=== PATIENT | male | born 1945 | race Caucasian/White ===

== ENCOUNTER 2023-12-20 15:25 | Emergency (ER) | payer OTHER, SELFPAY ==
[2023-12-20 15:32] VITALS: BP 134/81; PULSE 76; RESP 15; TEMP 36.6; O2SAT 97
--- NOTE | 2023-12-20 16:59 | DI.RAD_ITS ---
Exam(s) XR KNEE LT 3V AP,LAT,MADDIE EXAM: XR KNEE LT 3V AP,LAT,MADDIE CLINICAL HISTORY: pain months, unstable. TECHNIQUE: 2D digital imaging was performed. COMPARISON: No exams were available for comparison FINDINGS: 3 views No evidence of acute fracture although there does appear to be a joint effusion. In addition there i s advanced degenerative narrowing of the medial compartment. Lateral compartment exhibits normal hei ght. Moderate degenerative changes are noted in the patellofemoral compartment. IMPRESSION: Degenerative changes as above. Joint effusion. No fractures evident. DATA REPOSITORY: RADIATION DOSE DELIVERED:
--- NOTE | 2023-12-20 17:00 | DI.RAD_ITS ---
Exam(s) XR HIP RT COMPLETE AP PELVIS EXAM: XR HIP RT COMPLETE AP PELVIS CLINICAL HISTORY: right hip pain. TECHNIQUE: 2D digital imaging was performed. COMPARISON: No exams were available for comparison FINDINGS: Two views No evidence of pelvic nor hip fracture. Mild degenerative changes in the right hip noted. IMPRESSION: No fractures evident. DATA REPOSITORY: RADIATION DOSE DELIVERED:
[2023-12-20] MEDS: Diclofenac 1% Gel 100 GM TUBE (18:37)
--- NOTE | 2023-12-21 17:02 | ED.GENADUL_ITS ---
Discharge Plan Disposition Patient Disposition: Home Condition: Stable Discharge Details Clinical Impression: Effusion of knee Primary Care Provider: Jovany Donaldson ED Provider: Maricel Kearns Home Meds and New Rx's Prescriptions: New diclofenac sodium 1 % gel 4.5 inch topical QID Qty: 100 0RF Rx Instructions: apply to single elbow, wrist or hand; for hand includes palm/fingers/back of hand Continued omeprazole [Prilosec] 1 tab PO QHS Discharge Instructions Instructions: Swollen Joints Additional Instructions: Take Tylenol 650 every 6 hours as needed for pain Apply diclofenac gel and use your brace Follow-up with orthopedics tomorrow to schedule an appointment if you do not hear from them I placed a referral use your walker with ambulation and return earlier should you have new or worsening complaints Referrals: Hermilo Breen MD [ [facility] STAFF PHYSICIAN] - Discharge Data Discharge Date/Time-TO BE ENTERED AT DEPARTURE: 12/20/23 18:52 HPI General Date/Time Provider Initiated Documentation: 12/20/23 15:47 . HPI Narrative: This 78-year-old gentleman presents with left knee pain for the past several years, worsening this week. Denies any fever chills or known trauma. States he feels similarly to when he had his right knee replaced. Denies any tick bites or any additional complaints at this time. Pain worsened with walking. Related Data Home Medications ?Medication ?Instructions ?Recorded ?Confirmed diclofenac sodium 1 % topical gel 4.5 inch topical QID #100 grams 12/20/23 omeprazole 1 tab PO QHS 12/20/23 12/20/23 Previous Rx's ?Medication ?Instructions ?Recorded diclofenac sodium 1 % topical gel 4.5 inch topical QID #100 grams 12/20/23 Allergies Allergy/AdvReac Type Severity Reaction Status Date / Time No Known Allergies Allergy Unverified 12/20/23 15:36 General Stated Complaint: Orthopedic DIEGO: 4 Exam Narrative Exam Narrative: Left knee with tenderness, palpable small effusion, no joint laxity, no erythema, no calf swelling or tenderness, distal pulses intact, no tenderness to ankle or hip on left side, neurovascularly intact alert and oriented, ambulatory with antalgic gait Course Vital Signs Vital signs: Vital Signs Temperature 36.6 C 12/20/23 15:32 Pulse 76 12/20/23 15:32 Respiratory Rate 15 12/20/23 15:32 Blood Pressure 134/81 12/20/23 15:32 Pulse Oximetry 97 12/20/23 15:32 Temperature 36.6 C 12/20/23 15:32 Pulse 76 12/20/23 15:32 Respiratory Rate 15 12/20/23 15:32 Respiratory Effort Normal 12/20/23 15:35 Blood Pressure 134/81 12/20/23 15:32 Blood Pressure Position Sitting 12/20/23 15:32 Pulse Oximetry 97 12/20/23 15:32 Oxygen Delivery Method Room Air 12/20/23 15:32 Oxygen Flow Rate 0 12/20/23 15:32 Pain Level 7 12/20/23 16:11 Medical Decision Making 78-year-old male in no acute distress, left knee with tenderness, chronic knee pain. X-ray was ordered which shows an effusion and degenerative changes. Patient was placed in a hinged knee brace and will use a walker. Diclofenac gel supplied. Orthopedic referral is patient will need assessment. Ambulatory with steady but antalgic gait at time of discharge home return precautions reviewed and patient expressed understanding, no evidence of secondary infection Quality:SDOH Health Related Social Needs: No Data to Display PFSH All Active Problems (Updated 12/20/23 @ 18:05 by FRANCISCO Ferraro) Effusion of knee (Acute) Social History Smoking risk assessment performed?: No PAWSS Have you Been Recently Intoxicated or Drunk Within the Last 30 days?: No Have you Ever Experienced Previous Episodes of Alcohol Withdrawal?: No Have you ever Experienced Withdrawal Seizures?: No Have you ever Experienced Delirium Tremens(DT)s?: No Have you ever undergone Alcohol Rehabilitation Treatment (i.e, inpt ot outpatient treatment programs)?: No Have you ever Experienced Blackouts?: No Have you ever Combined Alcohol with other Downers within the last 90 days?: No Have you ever Combined Alcohol with any other Substance of Abuse during the last 90 days?: No Positive Blood Alcohol level on Presentation? [PCS.BAL]: No Evidence of Increased Autonomic Activity (i.e. HR>120, tremor, sweating, agitation, nausea)?: No Result: 0
== END 2023-12-20 18:52 | disposition home or self-care (01) ==
PROVIDERS: Emergency Provider Physician Assistant; PCP Internal Medicine
DX: M25.562 Pain in left knee (principal); M25.462 Effusion, left knee; Z96.651 Presence of right artificial knee joint
CPT/HCPCS: 73562; 99283; 73502

== ENCOUNTER 2024-04-23 18:11 | Emergency (ER) | payer OTHER, SELFPAY ==
[2024-04-23] VITALS (16 sets, daily range): BP systolic 129–172; BP diastolic 53–86; PULSE 98–109; RESP 17–21; TEMP 36.7–36.9; O2SAT 95–98
--- NOTE | 2024-04-23 18:30 | DI.RAD_ITS ---
Exam(s) XR ELBOW RT COMPLETE EXAM: XR ELBOW RT COMPLETE CLINICAL HISTORY: injury post fall. TECHNIQUE: 2D digital imaging was performed of the left elbow. Three images were obtained. AP, lat eral and oblique views were obtained. COMPARISON: No exams were available for comparison FINDINGS: The lateral view is suboptimal secondary to patient positioning. BONES: No acute fracture is present. No bony destructive lesion is seen. There are well corticated os seous densities adjacent to the lateral epicondyle which are chronic. The radial head is poorly visu alized on this examination due to patient positioning. JOINTS: The elbow is normally aligned. No joint effusion is seen. Spurring is seen at the olecranon. SOFT TISSUE: Normal. IMPRESSION: 1. Exam is limited due to patient positioning. The radial head is not well visualized in all 3 plane s. If there is continued concern for radial head fracture, a follow-up examination or CT scan of the elbow is recommended. 2. Chronic changes seen around the elbow. DATA REPOSITORY: RADIATION DOSE DELIVERED:
--- NOTE | 2024-04-23 18:30 | DI.CT_ITS ---
Exam(s) CT CHEST/ABD/PEL W EXAM: CT CHEST/ABD/PEL W CLINICAL HISTORY: fall, flank injury, left hip injury TECHNIQUE: Imaging Protocol: Axial computed tomography images with coronal and sagittal reformatted images were created and reviewed. Lung Computer Aided Detection (CAD) was utilized. CONTRAST MATERIAL: Intravenous: Omnipaque 350 contrast volume:structured data in ml mL Oral: No COMPARISON: No exams were available for comparison FINDINGS: The examination is limited due to patient motion artifact. There is artifact in the abdomen due to position of the patient's upper extremities. CHEST: Tracheobronchial tree: Patent where visualized. No evidence of bronchiectasis. Pulmonary parenchyma: Moderate emphysematous changes are present. There is a 3 mm nodule in the infe rior aspect of the right upper lobe. There are no focal consolidating infiltrates. Mild atelectatic changes are seen in the dependent portions of the lungs. Visualized thyroid gland: There are few areas of hypodensity in the thyroid gland. There are less th an 4 mm. No follow-up is recommended. Mediastinum and Louann: No dominant adenopathy or fluid collection. The esophagus is unremarkable. Pleura: No effusion or pneumothorax. Heart: The heart is not dilated. Three vessel coronary artery calcification is present. No pericardi al effusion. Pulmonary arteries: Due to motion in the timing of the bolus evaluation of pulmonary artery embolism is limited. No large central pulmonary embolism is present. Aorta: Thoracic aorta non-dilated. No evidence of dissection. Atherosclerotic calcification is prese nt. Lymph nodes: Within normal limits. Soft tissues: Small amount of subcutaneous air in the soft tissues lateral to the acromioclavicular j oint. Bones:There are no displaced rib fractures. There are age-appropriate degenerative changes seen in t he shoulders bilaterally. No acute fractures or subluxations are seen in the thoracic or lumbar spin e. ABDOMEN: Liver: Normal density. No measurable mass. Portal, Superior Mesenteric, and Splenic Veins: Unremarkable. Gallbladder and Biliary Tract: No radiodense calculus or dilation. Pancreas: Normal density, no abnormal calcifications or inflammatory process. Spleen: Calcified granuloma are seen in the spleen. Adrenals: No masses seen. Kidneys: Normal size, contour and axis. No radiodense stones or obstructive uropathy. No masses seen. Abdominal Aorta: Abdominal portion non-dilated. Atherosclerotic calcification is present. Bowel: There is a large amount of stool in the rectum without wall thickening suggesting impaction. There is diverticulosis of the colon but no evidence of acute diverticulitis. There is no evidence o f bowel obstruction or bowel wall thickening. There is no evidence of appendicitis. Peritoneal Cavity: No ascites, collection or mesenteric inflammatory response. No free air. Lymph Nodes: Within normal limits. Bones: Within normal limits for the patient's age. Age-appropriate degenerative changes are seen in the lumbar spine. Soft Tissues: There are bilateral fat containing inguinal hernias and a moderate-sized fat containing umbilical hernia. There is mild enlargement of the left iliopsoas muscles. There is also mild infi ltration of the soft tissues. This may represent traumatic muscle injury. PELVIS: Bladder: There is mild diffuse thickening of the wall of the urinary bladder. There is mild infiltra tion of the surrounding tissues. No free fluid is seen in the pelvis. No air seen in the urinary bl adder. Reproductive Organs: Prostate gland appears mildly enlarged. Lymph Nodes: Within normal limits. Bones: Within normal limits. IMPRESSION: 1. No acute pulmonary process. 2. 3 mm right upper lobe pulmonary nodule. Solid nodules smaller than 6 mm do not require routine follow-up in all patients with high clinical r isk; however, some nodules smaller than 6 mm with suspicious morphology, upper lobe location, or both may warrant follow-up at 12 months (grade 2A; weak recommendation, high-quality evidence). (Ronald et al., 2017) Single solid noncalcified nodules. ???Solid nodules smaller than 6 mm (those 5 mm or smaller) do not require routine follow-up in patients at low risk (grade 1C; strong recommendation, low- or very-low- quality evidence). (Ronald et al., 2017) 3. No acute fracture is seen. 4. Mild enlargement of the left iliopsoas muscle with infiltration of the surrounding soft tissues. This may represent muscle injury. Please correlate clinically. 5. Mild diffuse thickening of the wall of the urinary bladder. This may be due to underdistention. Cystitis or chronic bladder outlet obstruction sequela cannot be excluded. 6. Small amount of subcutaneous air lateral to the acromioclavicular joint in the soft tissues. RADIATION DOSE DELIVERED: 538.17mGy.cm Total DLP DATA REPOSITORY: All CT scans at this facility are submitted to the National Radiology Data Registry (NRDR) Dose Index Registry (DIR) with the [employer] (A[employer]). RADIATION OPTIMIZATION: All CT scans at this facility use at least one of these dose optimization te chniques: automated exposure control; mA and/or kV adjustment per patient size (includes targeted exa ms where dose is matched to clinical indication); or iterative reconstruction.
--- NOTE | 2024-04-23 18:30 | DI.CT_ITS ---
Exam(s) CT HEAD CERVICAL SPINE WO EXAM: CT HEAD CERVICAL SPINE WO CLINICAL HISTORY: fall, [place]. TECHNIQUE: Imaging Protocol: Axial computed tomography images with coronal and sagittal reformatted images were created and reviewed COMPARISON: No exams were available for comparison FINDINGS: BRAIN: There are no skull fractures nor fluid in the visualized paranasal sinuses. There is no evidence of intracranial hemorrhage, mass effect, or shift of midline structures. There are no extra-axial fluid collections. The ventricles are not enlarged or shifted and there is no blo od within the ventricular system nor within the basal cisterns. There is moderate amount of bilatera l periventricular hypodensity consistent with chronic small vessel disease. Symmetrical atrophy is noted. CERVICAL SPINE: There is no evidence of acute fracture nor significant listhesis.. No significant prevertebral soft tissue swelling. There is this space narrowing at C5-6 level and small bilateral Luschka joint osteophytes at this lev el. There is also posterior bony ridging at C3-4 level and there is a prominent vertically orientate d exostoses coming off the posterior aspect of C4 vertebral body and extending superiorly for distanc e of 1.3 cm, it being 1.5 mm AP and 3 mm wide. This results in mild canal stenosis. However, there are no acute fractures identified. There is multilevel facet arthropathy. No facet joint fusion. There is no significant facet joint malalignment. No significant osseous lesions evident. IMPRESSION: No acute intracranial findings on this noninfused CT scan of the brain.Atrophy and chronic small-vess el white matter ischemic changes noted. No evidence of cervical spine fracture, malalignment, nor acute compromise of the cervical spinal can al. Degenerative changes as described above. RADIATION DOSE DELIVERED: 1,253.87mGy.cm Total DLP DATA REPOSITORY: All CT scans at this facility are submitted to the National Radiology Data Registry (NRDR) Dose Index Registry (DIR) with the [employer] (ACR). RADIATION OPTIMIZATION: All CT scans at this facility use at least one of these dose optimization te chniques: automated exposure control; mA and/or kV adjustment per patient size (includes targeted exa ms where dose is matched to clinical indication); or iterative reconstruction.
--- NOTE | 2024-04-23 18:30 | RT.EKG_ITS ---
APPROVED REPORT Exam: Resting ECG Reason for Exam: injury Patient Location: E HR:101 bpm ECG Measurements Heart Rate 101 AXIS [place] 151 P 56 QRSd 95 QRS -47 QT 360 T 83 QTc 468 Conclusion Sinus tachycardia...rate> 99 Left anterior fascicular block...axis(240,-40), init forces inf
--- NOTE | 2024-04-23 18:30 | DI.RAD_ITS ---
Exam(s) XR WRIST LT COMPLETE EXAM: XR WRIST LT COMPLETE CLINICAL HISTORY: injury post fall. TECHNIQUE: 2D digital imaging was performed of the left wrist. Three images were obtained. PA, obl ique and lateral views were obtained. COMPARISON: No exams were available for comparison FINDINGS: BONES: No acute fracture is present. No bony destructive lesion is seen. There is a tiny linear densi ty adjacent to the 1st metacarpophalangeal joint. It likely is chronic. The adjacent bone appears i ntact. JOINTS: The carpal bones are normally aligned. There are marked degenerative changes seen at the 1st carpometacarpal joint characterized by joint space narrowing and osteophytes. SOFT TISSUE: Normal. IMPRESSION: 1. No definite acute fracture or dislocation. 2. Tiny osseous density adjacent to the 1st MCP joint. This likely is chronic. Please correlate wit h the patient's site of pain. The adjacent bone appears unremarkable. DATA REPOSITORY: RADIATION DOSE DELIVERED:
[2024-04-23 19:11] LABS: Abs Immature Grans 0.03 10^3/uL (0.0-0.06); Absolute Basophil Count 0.03 10^3/uL (0.0-0.2); Absolute Eosinophil Count 0.05 10^3/uL (0.0-0.7); Absolute Lymphocyte Count 0.61 10^3/uL (1.2-3.4); Absolute Monocyte Count 0.44 10^3/uL (0.1-0.8); Absolute Neutrophil Count 8.13 10^3/uL (1.2-6.7); Basophils % 0.3 %; Eosinophils % 0.5 %; HCT 42.3 % (40.0-50.0); HGB 13.6 g/dL (13.5-17.5); Immature Grans % 0.3 %; Lymphocytes % 6.6 %; MCH 29.6 pg (27.0-33.0); MCHC 32.2 % (32.0-36.0); MCV 92 fL (80-95); Monocytes % 4.7 %; Neutrophils % 87.6 %; Platelet Count 288 10^3/uL (130-400); RDW 14.3 % (11.8-14.1); RDW-SD 48.3 fL; WBC 9.29 10^3/uL (4.4-10.8)
[2024-04-23 19:27] LABS: ALT 23 U/L (16-63); AST 18 U/L (15-37); Albumin 3.2 g/dL (3.4-5.0); Alkaline Phosphatase 122 U/L (46-116); Anion Gap 7.2 mmol/L (3-11); BUN 23 mg/dL (7-18); Bilirubin, Total 0.31 mg/dL (0.2-1.0); CO2 29.8 mmol/L (21.0-32.0); CREATININE 1.1 mg/dL (0.70-1.30); Calcium 9.2 mg/dL (8.5-10.1); Chloride 107 mmol/L (98-107); Creatine Kinase 78 U/L (39-308); Estimated GFR 68.29 (mL/min/1.73m2); Glucose 160 mg/dL (74-106); Lipase 28 U/L (<78); Magnesium 1.6 mg/dL (1.8-2.4); Potassium 3.8 mmol/L (3.5-5.1); Sodium 144 mmol/L (136-145); Total Protein 7.7 g/dL (6.4-8.2)
[2024-04-23 19:46] LABS: Bilirubin Negative (Negative); Blood Trace-intact (Negative); Clarity Clear (Clear); Glucose Negative (Negative); Ketones Negative (Negative); Leukocyte Esterase Negative (Negative); Nitrite Negative (Negative); Specific Gravity >= 1.030 (1.005-1.025); Urobilinogen 0.2 mg/dL (Up to 0.2); pH 5.5 (5-8)
[2024-04-23] MEDS: Diph,Pertuss(Acell),Tet Vac/Pf 0.5 ML SYR IM (19:47)
[2024-04-23 19:55] LABS: Bacteria Rare HPF (Negative); Crystals Negative HPF (Negative); Epithelial Cells Rare HPF (Negative); Mucus Trace (Negative); Other Cells Rare Transitional (Negative); WBC 0-2 HPF (0-5)
[2024-04-23 19:56] LABS: C & S Indicated? No; Casts Negative LPF (Negative)
[2024-04-23] MEDS: Omnipaque 350 MG/ML 100 ML BTL IJ (20:08)
[2024-04-23] MEDS: Normal Saline - Diluent 50 ML VIAL IJ (20:13)
--- NOTE | 2024-04-23 21:23 | DI.VRAD_ITS ---
PROCEDURE INFORMATION: Exam: CT Head Without Contrast Exam date and time: 04/23/2024 8:03 PM Age: 78 years old Clinical indication: Other: Fall, hi TECHNIQUE: Imaging protocol: Computed tomography of the head without contrast. COMPARISON: No relevant prior studies available. FINDINGS: Brain: No intracranial hemorrhage. There is global parenchymal volume loss. Periventricular white matter hypoattenuation is nonspecific but most likely due to small vessel disease. No evidence of acute territorial infarct or cerebral edema. No mass effect or midline shift. Cerebral ventricles: Prominent ventricles likely secondary to volume loss. Paranasal sinuses: Visualized sinuses are unremarkable. No fluid levels. Mastoid air cells: Nearly complete opacification of the mastoid air cells, bilaterally. Bones: Unremarkable. No acute fracture. Soft tissues: Punctate scalp calcifications. IMPRESSION: No acute intracranial findings. PROCEDURE INFORMATION: Exam: CT Cervical Spine Without Contrast Exam date and time: 04/23/2024 8:03 PM Age: 78 years old Clinical indication: Other: Fall, hi TECHNIQUE: Imaging protocol: Computed tomography of the cervical spine without contrast. COMPARISON: No relevant prior studies available. FINDINGS: Bones/joints: The cervical spine demonstrates moderate degenerative changes at multiple levels. Moderate disc space narrowing with anterior and posterior osteophyte formation more prominent C3/C4 and C5/C6 there is mild canal narrowing C3/C4 measuring to 7 mm. No fracture. Lungs: Lung apices are normal. Soft tissues: Unremarkable. IMPRESSION: No acute findings. Dictated and Authenticated by: Wendy Shaw MD. Orderin Urmila Connelly MD
--- NOTE | 2024-04-23 21:26 | DI.VRAD_ITS ---
PROCEDURE INFORMATION: Exam: XR Left Wrist Exam date and time: 04/23/2024 8:19 PM Age: 78 years old Clinical indication: Other: Injury post fall TECHNIQUE: Imaging protocol: Radiologic exam of the left wrist. Views: 3 or more views. COMPARISON: No relevant prior studies available. FINDINGS: Bones/joints: Tiny bone attenuating fragment near the 1st MCP joint, this may represent a ossicle this could also represent a fracture fragment, donor site unknown. Severe degenerative changes at the 1st ALF joint. Soft tissues: Diffuse soft tissue edema. IMPRESSION: 1. Tiny bone attenuating fragment near the 1st MCP joint, this may represent a ossicle this could also represent a fracture fragment, donor site unknown. 2. Severe degenerative changes at the 1st ALF joint. 3. Diffuse soft tissue edema. Dictated and Authenticated by: Wendy Shaw MD. Orderin Urmila Connelly MD
--- NOTE | 2024-04-23 21:28 | DI.VRAD_ITS ---
PROCEDURE INFORMATION: Exam: XR Right Elbow Exam date and time: 04/23/2024 8:22 PM Age: 78 years old Clinical indication: Other: Pain S/P fall TECHNIQUE: Imaging protocol: Radiologic exam of the right elbow. Views: 3 or more views. COMPARISON: No relevant prior studies available. FINDINGS: Bones/joints: Irregularity of the near the radial head, could represent a nondisplaced fracture. Soft tissues: Moderate elbow joint soft tissue edema mainly posteriorly, this could represent a effusion or hematoma. IMPRESSION: 1. Moderate elbow joint soft tissue edema mainly posteriorly, this could represent a effusion or hematoma. 2. Irregularity of the near the radial head, could represent a nondisplaced fracture. Dictated and Authenticated by: Wendy Shaw MD. Orderin Urmila Connelly MD
--- NOTE | 2024-04-23 21:29 | ED.GENADUL_ITS ---
Discharge Plan Disposition Patient Disposition: Home Discharge Details Clinical Impression: Hip injury, Injury of wrist, Bursitis of left elbow, Parkinson's disease, Unsteady gait, Hypomagnesemia Primary Care Provider: Jovany Donaldson ED Provider: Maricel Kearns Home Meds and New Rx's Prescriptions: New magnesium 250 mg tablet 250 mg PO DAILY Qty: 10 0RF Continued atenolol 50 mg tablet 50 mg PO DAILY carbidopa-levodopa 25-100 mg tablet 1 tab PO TID duloxetine 60 mg capsule,delayed release(DR/EC) 60 mg PO DAILY hydrochlorothiazide 25 mg tablet 25 mg PO DAILY omeprazole 20 mg capsule,delayed release(DR/EC) 20 mg PO .qod potassium chloride 10 mEq capsule, extended release 10 meq PO DAILY simvastatin 80 mg tablet 80 mg PO QHS losartan 25 mg tablet 25 mg PO DAILY tamsulosin 0.4 mg capsule 0.4 mg PO DAILY diclofenac sodium 1 % gel 4.5 inch topical QID Qty: 100 0RF Rx Instructions: apply to single elbow, wrist or hand; for hand includes palm/fingers/back of hand Discharge Instructions Instructions: Parkinson disease, Bursitis (DC), Preventing falls in adults, Common Wrist Injuries (DC), Low Magnesium Level Additional Instructions: Take the magnesium as prescribed, Tylenol as needed for pain Or having placed a hands glasses of water daily, follow-up with your doctor tomorrow, you received a tetanus shot here in the emergency department, and you have possible fracture to your left wrist and your right elbow, given that you are able to range her elbow I suspect this is more arthritis and less likely to be an acute fracture, please follow-up with your doctor regarding this I placed a left wrist splint for comfort, I think placing her right sling on your arm would be more of a risk than benefit You have requested to be discharged home, please use your walker with any sort of ambulation and call your doctor tomorrow for reassessment You are likely going to need much more support in the upcoming days secondary to your Parkinson's Earlier should you have desire for reassessment or any new concerns arise Referrals: Jvoany Donaldson [Primary Care Provider] - 1 day HPI General Date/Time Provider Initiated Documentation: 04/23/24 18:18 . HPI Narrative: The patient is a 78-year-old male with a history of Parkinson's, hypertension, GERD, and hyperlipidemia, who presents with a report of a fall today. He reports that he fell backward at some point today and was found lying on the floor when his caregiver arrived around 1730 hours. He estimates that he was on the floor for approximately an hour. He remembers the entirety of the fall and did not lose consciousness. He predominantly complains of pain in his left hip. He does not experience any chest pain or shortness of breath. He also does not experience any dizziness or weakness. He feels as though he lost his balance, causing him to fall backward. He does not have a history of coagulopathy. Related Data Home Medications ?Medication ?Instructions ?Recorded ?Confirmed diclofenac sodium 1 % topical gel 4.5 inch topical QID #100 grams 12/20/23 04/23/24 atenolol 50 mg tablet 50 mg PO DAILY 12/28/23 04/23/24 carbidopa 25 mg-levodopa 100 mg 1 tab PO TID 12/28/23 04/23/24 tablet duloxetine 60 mg capsule,delayed 60 mg PO DAILY 12/28/23 04/23/24 release hydrochlorothiazide 25 mg tablet 25 mg PO DAILY 12/28/23 04/23/24 losartan 25 mg tablet 25 mg PO DAILY 12/28/23 04/23/24 omeprazole 20 mg capsule,delayed 20 mg PO .qod 12/28/23 04/23/24 release potassium chloride 10 mEq 10 meq PO DAILY 12/28/23 04/23/24 capsule,extended release simvastatin 80 mg tablet 80 mg PO QHS 12/28/23 04/23/24 tamsulosin 0.4 mg capsule 0.4 mg PO DAILY 12/28/23 04/23/24 magnesium 250 mg tablet 250 mg PO DAILY #10 tabs 04/23/24 Previous Rx's ?Medication ?Instructions ?Recorded diclofenac sodium 1 % topical gel 4.5 inch topical QID #100 grams 12/20/23 magnesium 250 mg tablet 250 mg PO DAILY #10 tabs 04/23/24 Allergies Allergy/AdvReac Type Severity Reaction Status Date / Time No Known Allergies Allergy Unverified 04/23/24 18:18 General Stated Complaint: Fall/Non TraumaCriteria DIEGO: 3 Exam Narrative Exam Narrative: General Appearance: The patient is alert and oriented, not in acute distress. Vital signs: Within normal limits. HEENT: Pupils are equal, round, and reactive to light and accommodation. Extraocular muscles are intact. Respiratory: Lungs are clear to auscultation. Cardiovascular: Heart rate and rhythm are regular. Gastrointestinal: Abdomen is nontender with no visible evidence of trauma. Back, Musculoskeletal: No tenderness in the cervical, thoracic, or lumbar spine. Extremities: There is an abrasion on the left flank, which is nontender. There is an abrasion and acute bursitis on the right elbow, likely traumatic, with mild tenderness. The left wrist and hip are tender without visible evidence of deformity or trauma, neurovascularly intact. No tenderness in the bilateral knees or ankles. Skin: Warm and dry, no rash. Neurological: The patient is able to follow all basic commands, GCS score of 15. Course Vital Signs Vital signs: Vital Signs Temperature 36.7 C 04/23/24 18:15 Pulse 107 H 04/23/24 18:15 Respiratory Rate 18 04/23/24 18:15 Blood Pressure 172/86 H 04/23/24 18:15 Pulse Oximetry 95 04/23/24 18:15 Temperature 36.7 C 04/23/24 18:15 Temperature Source Oral 04/23/24 18:15 Pulse 104 H 04/23/24 20:30 Pulse 104 H 04/23/24 20:30 Respiratory Rate 18 04/23/24 20:30 Blood Pressure 133/66 04/23/24 20:00 Blood Pressure Mean 81 04/23/24 20:00 Blood Pressure Position Supine 04/23/24 18:15 Pulse Oximetry 97 04/23/24 20:30 Oxygen Delivery Method Room Air 04/23/24 18:15 Oxygen Flow Rate 0 04/23/24 18:15 Pain Level 6 04/23/24 18:40 Lab/Test Results Lab/Test Results: Laboratory Tests Range/Units 04/23/24 04/23/24 04/23/24 19:02 19:02 19:02 WBC (4.4-10.8) 10^3/uL 9.29 RBC (4.36-5.78) 10^6/uL 4.60 Hgb (13.5-17.5) g/dL 13.6 Hct (40.0-50.0) % 42.3 MCV (80-95) fL 92 MCH (27.0-33.0) pg 29.6 MCHC (32.0-36.0) % 32.2 RDW (11.8-14.1) % 14.3 H Plt Count (130-400) 10^3/uL 288 MPV (8.0-11.0) fL 9.0 Immature Gran % % 0.3 Neutrophils % % 87.6 Lymphocytes % % 6.6 Monocytes % % 4.7 Eosinophils % % 0.5 Basophils % % 0.3 Nucleated RBC % (0.0-0.3) % 0.0 Absolute Neutrophils (1.2-6.7) 10^3/uL 8.13 H Absolute Lymphocytes (1.2-3.4) 10^3/uL 0.61 L Absolute Monocytes (0.1-0.8) 10^3/uL 0.44 Absolute Eosinophils (0.0-0.7) 10^3/uL 0.05 Absolute Basophils (0.0-0.2) 10^3/uL 0.03 Sodium (136-145) mmol/L 144 Potassium (3.5-5.1) mmol/L 3.8 Chloride (98-107) mmol/L 107 Carbon Dioxide (21.0-32.0) mmol/L 29.8 Anion Gap (3-11) mmol/L 7.2 BUN (7-18) mg/dL 23 H Creatinine (0.70-1.30) mg/dL 1.1 Est GFR (CKD-EPI 2020) (mL/min/1.73m2) 68.29 Glucose (74-106) mg/dL 160 H Calcium (8.5-10.1) mg/dL 9.2 Magnesium (1.8-2.4) mg/dL 1.6 L Cancelled Total Bilirubin (0.2-1.0) mg/dL 0.31 AST (15-37) U/L 18 ALT (16-63) U/L 23 Alkaline Phosphatase (46-116) U/L 122 H Creatine Kinase (39-308) U/L 78 Cancelled Total Protein (6.4-8.2) g/dL 7.7 Albumin (3.4-5.0) g/dL 3.2 L Lipase (<78) U/L 28 Urine Color (Yellow) Urine Clarity (Clear) Urine pH (5-8) Ur Specific [place] (1.005-1.025) Urine Protein (Neg-Trace) mg/dL Urine Ketones (Negative) mg/dL Urine Blood (Negative) Urine Nitrite (Negative) Urine Bilirubin (Negative) Urine Urobilinogen (Up to 0.2) mg/dL Ur Leukocyte Esterase (Negative) Urine RBC (0-2) HPF Urine WBC (0-5) HPF Ur Epithelial Cells (Negative) HPF Urine Crystals (Negative) HPF Urine Bacteria (Negative) HPF Urine Casts (Negative) LPF Urine Mucus (Negative) Urine Other (Negative) Ur Culture Indicated? Urine Glucose (Negative) mg/dL Range/Units 04/23/24 04/23/24 19:02 19:37 WBC (4.4-10.8) 10^3/uL RBC (4.36-5.78) 10^6/uL Hgb (13.5-17.5) g/dL Hct (40.0-50.0) % MCV (80-95) fL MCH (27.0-33.0) pg MCHC (32.0-36.0) % RDW (11.8-14.1) % Plt Count (130-400) 10^3/uL MPV (8.0-11.0) fL Immature Gran % % Neutrophils % % Lymphocytes % % Monocytes % % Eosinophils % % Basophils % % Nucleated RBC % (0.0-0.3) % Absolute Neutrophils (1.2-6.7) 10^3/uL Absolute Lymphocytes (1.2-3.4) 10^3/uL Absolute Monocytes (0.1-0.8) 10^3/uL Absolute Eosinophils (0.0-0.7) 10^3/uL Absolute Basophils (0.0-0.2) 10^3/uL Sodium (136-145) mmol/L Potassium (3.5-5.1) mmol/L Chloride (98-107) mmol/L Carbon Dioxide (21.0-32.0) mmol/L Anion Gap (3-11) mmol/L BUN (7-18) mg/dL Creatinine (0.70-1.30) mg/dL Est GFR (CKD-EPI 2020) (mL/min/1.73m2) Glucose (74-106) mg/dL Calcium (8.5-10.1) mg/dL Magnesium (1.8-2.4) mg/dL Total Bilirubin (0.2-1.0) mg/dL AST (15-37) U/L ALT (16-63) U/L Alkaline Phosphatase (46-116) U/L Creatine Kinase (39-308) U/L Total Protein (6.4-8.2) g/dL Albumin (3.4-5.0) g/dL Lipase (<78) U/L Cancelled Urine Color (Yellow) Yellow Urine Clarity (Clear) Clear Urine pH (5-8) 5.5 Ur Specific [place] (1.005-1.025) >= 1.030 H Urine Protein (Neg-Trace) mg/dL 30 H Urine Ketones (Negative) mg/dL Negative Urine Blood (Negative) Trace-intact H Urine Nitrite (Negative) Negative Urine Bilirubin (Negative) Negative Urine Urobilinogen (Up to 0.2) mg/dL 0.2 Ur Leukocyte Esterase (Negative) Negative Urine RBC (0-2) HPF 3-5 H Urine WBC (0-5) HPF 0-2 Ur Epithelial Cells (Negative) HPF Rare Urine Crystals (Negative) HPF Negative Urine Bacteria (Negative) HPF Rare Urine Casts (Negative) LPF Negative Urine Mucus (Negative) Trace Urine Other (Negative) Rare Transitional Ur Culture Indicated? No Urine Glucose (Negative) mg/dL Negative Medical Decision Making Laboratory Studies CBC without acute abnormality. BUN baseline for patient. Mild hyperglycemia 160. Mag of 1.6. Urinalysis noninfectious with red blood cells. Imaging X-ray of right elbow shows possible fracture, although patient has significant arthritis and it's difficult to fully assess. CT head and cervical spine does not show evidence of acute abnormality per radiology interpretation on my review. CT chest, abdomen, and pelvis does not show acute abnormality per radiology interpretation on my review. Specifically no evidence of hip fracture. Initial Assessment: 78-year-old male with history of Parkinson's, hypertension, GERD, hyperlipidemia, presents with a fall. Complains of left hip pain, denies chest pain, shortness of breath, dizziness, or weakness. No history of coagulopathy. Physical exam shows alert and oriented, GCS 15, mild tenderness to left wrist and hip, abrasion and acute bursitis to right elbow, no abdominal or spine tenderness, lungs clear, cardiac rate and rhythm regular. Differential Diagnosis: - Right elbow fracture: X-ray suggests possible fracture, significant arthritis complicates assessment, no clinical evidence of open fracture, superficial abrasions suspected, low suspicion of fracture due to ability to range elbow, referral to orthopedics. - Left wrist injury: Possible injury noted, nontender over MTP area where radiology indicates potential fracture. - Hip fracture: CT chest, abdomen, and pelvis shows no evidence of hip fracture. ED Course: - CT chest, abdomen, and pelvis: No acute abnormality, no evidence of hip fracture. - CT head and cervical spine: No acute abnormality. - X-rays of elbow and wrist: Right elbow possible fracture, left wrist potential injury. - Diagnostic labs: CBC without acute abnormality, BUN baseline, mild hyperglycemia 160, Mag 1.6, supplemented, urinalysis noninfectious with red blood cells. - Ambulatory test: Marked difficulty with ambulation. Final Assessment: Comprehensive diagnostic approach undertaken due to age and comorbidities. No acute abnormalities found in CT scans. Right elbow possible f racture complicated by arthritis, low suspicion of fracture due to range of motion. Left wrist potential injury. Marked difficulty with ambulation noted. Clinical Impression: - Fall - Right elbow possible fracture - Left wrist potential injury - Mild hyperglycemia Disposition: - Discharge: Patient requests discharge home, caregiver comfortable with decision, aware of steady decline, attempting to arrange placement in assisted living facility. - Follow-Up: Daughter to contact [place] [facility] for follow-up assistance. [facility] Components Evaluation: - Number of Differential Diagnoses or Management Options: Right elbow fracture, left wrist injury, hip fracture. - Amount and Complexity of Data Reviewed: CT chest, abdomen, and pelvis, CT head and cervical spine, x-rays of elbow and wrist, diagnostic labs including CBC, BUN, urinalysis. - Risk of Complication and Morbidity or Mortality: Given age and comorbidities, comprehensive diagnostic approach necessary, potential complications from fall, marked difficulty with ambulation. Quality:SDOH Health Related Social Needs: No Data to Display PFSH All Active Problems (Updated 04/23/24 @ 22:19 by FRANCISCO Ferraro) Hypomagnesemia (Acute) Unsteady gait (Acute) Parkinson's disease (Chronic) Bursitis of left elbow (Acute) Injury of wrist (Acute) Hip injury (Acute) Trochanteric bursitis, right hip (Acute) Osteoarthritis of left knee (Acute) Social History Smoking risk assessment performed?: No
--- NOTE | 2024-04-23 21:33 | DI.VRAD_ITS ---
PROCEDURE INFORMATION: Exam: CT Chest With Contrast; Diagnostic Exam date and time: 04/23/2024 8:10 PM Age: 78 years old Clinical indication: Other: Fall, flank injury, left hip injury TECHNIQUE: Imaging protocol: Diagnostic computed tomography of the chest with contrast. Contrast material: 350; Contrast volume: 100 ml; Contrast route: INTRAVENOUS (IV); COMPARISON: CT HEAD CERVICAL SPINE WO 04/23/2024 8:03 PM FINDINGS: Thyroid: No thyroid lesions. No thyroid enlargement. Trachea: The central airways clear. Lungs: There is diffuse pulmonary emphysema. Linear bibasilar opacities most consistent with subsegmental atelectasis. Pleural spaces: Unremarkable. No pneumothorax. No pleural effusion. Heart: No cardiomegaly or pericardial effusion. Coronary arteries: Coronary arterial atherosclerotic calcifications are present. Lymph nodes: No axillary adenopathy. Vasculature: Moderate atherosclerotic calcifications of the thoracic aorta. Bones/joints: Moderate multilevel degenerative changes thoracic spine. Soft tissues: Left shoulder soft tissue edema with small foci of subcutaneous air IMPRESSION: No acute findings. PROCEDURE INFORMATION: Exam: CT Abdomen And Pelvis With Contrast Exam date and time: 04/23/2024 8:10 PM Age: 78 years old Clinical indication: Other: Fall, flank injury, left hip injury TECHNIQUE: Imaging protocol: Computed tomography of the abdomen and pelvis with contrast. Contrast material: 350; Contrast volume: 100 ml; Contrast route: INTRAVENOUS (IV); COMPARISON: CR XR HIP RT COMPLETE AP PELVIS 12/20/2023 4:50 PM FINDINGS: Lungs: Clear Liver: The liver is unremarkable. Gallbladder and biliary ducts: No gallstones. Nondistended. No wall thickening. Pancreas: The pancreas is unremarkable. Spleen: No splenomegaly. No lesions. Adrenal glands: The adrenal glands are unremarkable. Kidneys and ureters: The kidneys are normal. Stomach and bowel: Moderate stool throughout the colon and rectum. Colonic diverticulosis without evidence of diverticulitis. Appendix: No evidence of appendicitis. Intraperitoneal space: Unremarkable. No free air. No significant fluid collection. Vasculature: There is moderate diffuse atherosclerotic disease of the abdominal aorta. Lymph nodes: Unremarkable. No enlarged lymph nodes. Urinary bladder: There is diffuse bladder wall thickening, this may be secondary to incomplete distension, however, cystitis can have a similar appearance. Correlate clinically. Reproductive: Unremarkable as visualized. Bones/joints: No acute osseous abnormality. The lumbar spine demonstrates moderate degenerative changes at multiple levels. Soft tissues: Small fat containing umbilical hernia. Bilateral fat containing inguinal hernias. IMPRESSION: No acute findings. Dictated and Authenticated by: Wendy Shaw MD. Orderin Urmila Connelly MD
== END 2024-04-23 23:08 | disposition home or self-care (01) ==
PROVIDERS: Emergency Provider Physician Assistant; PCP Internal Medicine
DX: S79.812A Other specified injuries of left hip, initial encounter (principal); S69.82XA Other specified injuries of left wrist, hand and finger(s), initial encounter; M71.522 Other bursitis, not elsewhere classified, left elbow; E83.42 Hypomagnesemia; G20.A1 Parkinson's disease without dyskinesia, without mention of fluctuations; Z23 Encounter for immunization; W18.39XA Other fall on same level, initial encounter; Y93.01 Activity, walking, marching and hiking; Y92.89 Other specified places as the place of occurrence of the external cause
CPT/HCPCS: 74177; 80053; 82550; 83690; 90471; 90715; 93005; 99285; 70450; 71260; 72125; 73080; 73110; 81003; 81015; 83735; 85025; 93010; 99284; J3490

== ENCOUNTER 2024-06-12 09:52 | Emergency (ER) | payer OTHER, SELFPAY ==
[2024-06-12] VITALS (13 sets, daily range): BP systolic 142–160; BP diastolic 66–72; PULSE 75–88; RESP 13–19; TEMP 36.5–36.6; O2SAT 96–98
--- NOTE | 2024-06-12 09:45 | RT.EKG_ITS ---
APPROVED REPORT Exam: Resting ECG Reason for Exam: weakness Patient Location: E HR:89 bpm ECG Measurements Heart Rate 89 AXIS CA 146 P 44 QRSd 96 QRS -46 QT 381 T 78 QTc 465 Conclusion Sinus rhythm...normal P axis, V-rate 60- 99 Left anterior fascicular block...axis(240,-40), init forces inf No STEMI
--- NOTE | 2024-06-12 10:00 | DI.CT_ITS ---
Exam(s) CT HEAD WO EXAM: CT HEAD WO CLINICAL HISTORY: confusion yesterday, resolving. TECHNIQUE: Imaging Protocol: Axial computed tomography images with coronal and sagittal reformatted images were created and reviewed COMPARISON: CT CT HEAD CERVICAL SPINE WO from 04/23/2024 FINDINGS: Ventricles and Extra axial spaces: Normal in size and morphology for the patient's age. Hemorrhage: None. Cerebral parenchyma: No evidence of acute infarct or mass. Home [id number] atrophy. Mild to mo derate white matter changes of microvascular disease. Midline shift: None. Brainstem/Cerebellum: Normal. Calvarium: Normal. Visualized Paranasal sinuses:Clear. Mastoids: Clear. Soft Tissues: skin calcifications. ORBITS: Unremarkable. PITUITARY: Not enlarged. IMPRESSION: No acute intracranial process. RADIATION DOSE DELIVERED: 841.31mGy.cm Total DLP DATA REPOSITORY: All CT scans at this facility are submitted to the National Radiology Data Registry (NRDR) Dose Index Registry (DIR) with the [employer] ([employer]). RADIATION OPTIMIZATION: All CT scans at this facility use at least one of these dose optimization te chniques: automated exposure control; mA and/or kV adjustment per patient size (includes targeted exa ms where dose is matched to clinical indication); or iterative reconstruction.
--- NOTE | 2024-06-12 10:00 | DI.RAD_ITS ---
Exam(s) XR CHEST 2V PA LATERAL EXAM: XR CHEST 2V PA LATERAL CLINICAL HISTORY: confusion, SOB TECHNIQUE: 2D digital imaging was performed. Two views. COMPARISON: No exams were available for comparison FINDINGS: HEART: Normal size. Aorta: Not dilated. PULMONARY VASCULATURE: Normal. MEDIASTINUM: Unremarkable. LUNGS: Suboptimally inflated but clear. PLEURAL SPACE: No pleural effusion or pneumothorax. BONE:Unremarkable for age. SOFT TISSUES: Unremarkable. IMPRESSION: No acute abnormality. DATA REPOSITORY: RADIATION DOSE DELIVERED:
--- NOTE | 2024-06-12 10:08 | ED.GENADUL_ITS ---
Discharge Plan Disposition Patient Disposition: Home Condition: Good Discharge Details Clinical Impression: Altered mental status, Parkinson disease Primary Care Provider: Jovany Donaldson ED Provider: Hansa Fitzpatrick Home Meds and New Rx's Prescriptions: Continued atenolol 50 mg tablet 50 mg PO DAILY carbidopa-levodopa 25-100 mg tablet 1 tab PO TID duloxetine 60 mg capsule,delayed release(DR/EC) 60 mg PO DAILY hydrochlorothiazide 25 mg tablet 25 mg PO DAILY omeprazole 20 mg capsule,delayed release(DR/EC) 20 mg PO .qod potassium chloride 10 mEq capsule, extended release 10 meq PO DAILY simvastatin 80 mg tablet 80 mg PO QHS losartan 25 mg tablet 25 mg PO DAILY tamsulosin 0.4 mg capsule 0.4 mg PO DAILY diclofenac sodium 1 % gel 4.5 inch topical QID Qty: 100 0RF Rx Instructions: apply to single elbow, wrist or hand; for hand includes palm/fingers/back of hand magnesium 250 mg tablet 250 mg PO DAILY Qty: 10 0RF Discharge Instructions Instructions: Delirium (confusion) Additional Instructions: Labs and imaging are reassuring here today. The story and exam is not consistent with stroke. I am more concerned about aspiration or progression Parkinsons but encourage close follow up with primary care. I have called their office, waiting for call back. Please continue with your medications as prescribed. Referral has been sent to palliative care. Please continue to encourage hydration. Care management is looking into other possible supports. If you develop any new/worsening symptoms, please seek care urgently once again. Referral for home PT has been sent as well. Referrals: Jovany Donaldson [Primary Care Provider] - Discharge Data Discharge Date/Time-TO BE ENTERED AT DEPARTURE: 06/12/24 13:05 [facility] General Date/Time Provider Initiated Documentation: 06/12/24 09:55 . Limitations to Documentation: no limitations . Information obtained by: patient, family (home care provider and daughter), RN notes reviewed and old records reviewed . History of Present Illness 79 year old M presents to the emergency department with the chief complaint of episode of confusion yesterday, lasted a few seconds, described as moderate and similar to prior episodes (had one other episode about a month ago), Patient started experiencing this day(s) and it has been now resolved (lasted a few seconds). No relieving factors improve symptom(s), No exacerbating factors reported . Patient notes no other symptoms.. Patient did receive the following treatments prior to arrival, none Related Data Home Medications ?Medication ?Instructions ?Recorded ?Confirmed diclofenac sodium 1 % topical gel 4.5 inch topical QID #100 grams 12/20/23 06/12/24 atenolol 50 mg tablet 50 mg PO DAILY 12/28/23 06/12/24 carbidopa 25 mg-levodopa 100 mg 1 tab PO TID 12/28/23 06/12/24 tablet duloxetine 60 mg capsule,delayed 60 mg PO DAILY 12/28/23 06/12/24 release hydrochlorothiazide 25 mg tablet 25 mg PO DAILY 12/28/23 06/12/24 losartan 25 mg tablet 25 mg PO DAILY 12/28/23 06/12/24 omeprazole 20 mg capsule,delayed 20 mg PO .qod 12/28/23 06/12/24 release potassium chloride 10 mEq 10 meq PO DAILY 12/28/23 06/12/24 capsule,extended release simvastatin 80 mg tablet 80 mg PO QHS 12/28/23 06/12/24 tamsulosin 0.4 mg capsule 0.4 mg PO DAILY 12/28/23 06/12/24 magnesium 250 mg tablet 250 mg PO DAILY #10 tabs 04/23/24 06/12/24 Previous Rx's ?Medication ?Instructions ?Recorded diclofenac sodium 1 % topical gel 4.5 inch topical QID #100 grams 12/20/23 magnesium 250 mg tablet 250 mg PO DAILY #10 tabs 04/23/24 Allergies Allergy/AdvReac Type Severity Reaction Status Date / Time No Known Allergies Allergy Unverified 06/12/24 10:09 General Stated Complaint: GenMedical DIEGO: 3 Review of Systems Constitutional Constitutional: Reports as per HPI, Denies chills, Denies fever(s), Reports frequent falls, Denies headache(s), Denies poor appetite (no recent change) and Reports weakness (associates with Parkinsons, chronic BUE and BLE, no acute change) Eyes Eyes: Denies change in vision and Denies loss of vision ENT Ears, Nose, Mouth, and Throat: Reports dysphagia (chronic, associates with previ ous surgery, can have aspiration), Denies vertigo, Denies headache(s), Denies odynophagia and Reports disequilibrium Cardiovascular Cardiovascular: Reports as per HPI, Denies chest pain and Denies dyspnea Respiratory Respiratory: Reports as per HPI, Denies cough and Denies dyspnea Gastrointestinal Gastrointestinal: Reports as per HPI, Denies abdominal pain, Denies change in bowel habits, Denies constipation (stool can be sticky per home care provi tyler), Reports dysphagia (chronic, associates with previous surgery, can have aspiration), Denies odynophagia and Denies vomiting Genitourinary Genitourinary: Reports as per HPI, Denies urinary frequency and Reports urinary incontinence (associates with Parkinsons) Neurologic Neurologic: Denies vertigo, Reports frequent falls, Denies headache(s), Reports lack of coordination, Denies localized weakness, Denies loss of vision, Reports tremor(s), Reports disequilibrium and Reports weakness (associates with Parkinsons, chronic BUE and BLE, no acute change) Exam Const General: cooperative, comfortable, no acute distress and ill appearing chronically Nutritional Appearance: average body habitus and well nourished Orientation: alert and awake [facility] Head: normal to inspection, normocephalic and atraumatic Ears: hearing grossly normal bilaterally General nose exam: external nose normal Face and sinus: normal facial exam, no lacerations and no sinus tenderness Mouth: oral mucosae normal, lip normal and tongue normal Teeth and gingiva: dentition normal Throat: posterior oropharynx normal Eyes General: appearance normal, both eyes and all related structures Chest Chest: normal inspection of the chest Resp Effort & Inspection: normal respiratory effort, able to speak in complete sentences and no respiratory distress Auscultation: clear to auscultation bilaterally Cardio Rate: regular rate Rhythm: regular rhythm Heart Sounds: murmur diastolic Skin General skin exam: no rashes or lesions noted Neuro General: patient alert, patient awake, patient oriented x3, gait abnormal, tone normal, moves all extremities and no focal motor deficits Cranial Nerves: CN's II-XI intact bilaterally Cognition: normal cognition Speech: speech normal Gait: shuffling (needs 2 assist) Motor: muscle tone normal throughout, strength not 5/5 throughout (generally weak but no focal findings 4/5), no pronator drift and tremor (left hand) Sensory Exam: no sensory deficits noted Extrem General: normal to inspection, capillary refill normal, no pedal edema and no calf tenderness Psych Appearance: grossly normal and well kempt Mental Status: mental status grossly normal Speech and Movement: speech and movement normal Course Vital Signs Vital signs: Vital Signs Temperature 36.5 C 06/12/24 09:55 Pulse 88 06/12/24 09:55 Respiratory Rate 18 06/12/24 09:55 Blood Pressure 160/66 H 06/12/24 09:55 Temperature 36.5 C 06/12/24 09:55 Temperature Source Oral 06/12/24 09:55 Pulse 88 06/12/24 09:55 Respiratory Rate 18 06/12/24 09:55 Blood Pressure 160/66 H 06/12/24 09:55 Pain Level 0 06/12/24 09:55 Medical Decision Making The patient is a pleasant 79-year-old male, brought in by his caregiver, chief complaint of episode of confusion yesterday that lasted a few seconds and subsequently resolved. Patient has had similar episode about 1 month ago. He does have a past medical history significant for Parkinson's, patient is now nonmobile and in a wheelchair. PMH also significant for hx of throat cancer with partial esophagectomy, hx of enlarged prostate, hx of bladder cancer s/p resection, elevated BP, high cholesterol. employment director states he has been at his baseline today, no further episodes. Patient state that he is feeling well, no pain. On exam, patient appears chronically unwell, weak and needs 2 assist to get into bed. this is reported to be baseline. He is alert and oriented x 4. He has tremor in left hand. Generalized weakness but no focal deficits of CN or elsewhere. No evidence of trauma. Lungs are clear. Mild diastolic murmur auscultated which was reported to be previously noted per daughter. employment director primarily concerned for CVA. However, the episode described of sidden onset of breath holding, not speaking, while eating that only lasted a few seconds with full return, does not sound like CVA. Particularly given patients hx of frequent choking with the partial esophagectomy, as well as progressive Parkinsons, this sounds to be more consistent with event. At this time, no acute deficits. employment director feels that movements are baseline, as does patient. He has no evidence of recent trauma. No sxs of infection. Even if patient did show signs of CVA, they are out window for lytics, do not qualify. I also spoke with patient and daughter about anticoagulation, I am concerned with his frequency of falls, to put him on anticoagulation. Spoke with daughter, Gerri, resides in [place] but is DPOA. Patient would like me to call her and give her update. She reports that last MRI was in 2022, she reports that this was for the dx of Parkinsons. She reports that sometime he has difficulty speaking so she is the decision maker sometimes. She states that he is a DNR. She advises that he is suffering and does not want to have aggressive interventions. [facility] She is trying to get him transferred to [place]. She does not want him to get [facility] care here. CT reivewed by radiologist, no acute abnormality. They do not mild to moderate atrophy, microvascular disease. CXR also reviewed by them, no acute abnormality. Labs reviewed, no acute abnormality. Will touch base with patient's PCP and daughter again. discussed with patient and he is requesting d/c to home. He continues to report he feels fine. employment director has ask a few times about an MRI. However, the full transient, bilateral nature of his symptoms, that only lasted a few seconds, does not sound consistent with CVA. More concerned with choking. He has also had similar episodes and issues with his Parkinsons in nikole past. This could be associated with progression of disease. While family is wanting to get him into intermediate designer care, patient does not want this. Currently, he appears to have capacity although it sounds like he has been progressing. [facility] Care management is looking into other options. Care management recommended home PT which I agree with. Have placed referral. Referral for palliative care placed as well. Discussed disposition at length. At this point, patient does not want to go to jail or assisted living home. He does have a good amount of support although no 24 hr care. Family is supportive. Encouraged close f/u with PCP. [facility] not [facility] the [facility] as of yet. No evidence at this time for acute medical emergency. All of their questions and concerns were addressed, they are in agreement with this plan. Quality:SDOH Health Related Social Needs: No Data to Display PFSH All Active Problems (Updated 06/12/24 @ 12:47 by FRANCISCO Lora) Parkinson disease (Chronic) Altered mental status (Acute) Trochanteric bursitis, right hip (Acute) Osteoarthritis of left knee (Acute) Social History Smoking/Tobacco Use Status: Former Tobacco Use Smoking risk assessment performed?: Yes Alcohol Intake: never Substance use type: does not use
[2024-06-12 10:22] LABS: Abs Immature Grans 0.02 10^3/uL (0.0-0.06); Absolute Basophil Count 0.05 10^3/uL (0.0-0.2); Absolute Lymphocyte Count 0.89 10^3/uL (1.2-3.4); Absolute Monocyte Count 0.34 10^3/uL (0.1-0.8); Basophils % 0.7 %; Eosinophils % 1.4 %; HCT 42.5 % (40.0-50.0); HGB 13.6 g/dL (13.5-17.5); Immature Grans % 0.3 %; Lymphocytes % 12.5 %; MCV 94 fL (80-95); MPV 8.9 fL (8.0-11.0); Monocytes % 4.8 %; Neutrophils % 80.3 %; Platelet Count 237 10^3/uL (130-400); RBC 4.54 10^6/uL (4.36-5.78); RDW 14.8 % (11.8-14.1); RDW-SD 51.1 fL
[2024-06-12 11:14] LABS: ALT 10 U/L (16-63); AST 17 U/L (15-37); Albumin 3.4 g/dL (3.4-5.0); Alkaline Phosphatase 123 U/L (46-116); Anion Gap 4.7 mmol/L (3-11); BUN 16 mg/dL (7-18); Bilirubin, Total 0.4 mg/dL (0.2-1.0); CO2 32.3 mmol/L (21.0-32.0); CREATININE 1.1 mg/dL (0.70-1.30); Calcium 9.6 mg/dL (8.5-10.1); Chloride 105 mmol/L (98-107); Estimated GFR 67.86 (mL/min/1.73m2); Glucose 144 mg/dL (74-106); Magnesium 1.8 mg/dL; Potassium 4.3 mmol/L (3.5-5.1); Sodium 142 mmol/L (136-145); Total Protein 8.1 g/dL (6.4-8.2); Troponin I 24 ng/L (<or=76)
[2024-06-12 11:15] LABS: Bilirubin Negative (Negative); Blood Negative (Negative); Clarity Clear (Clear); Glucose Negative (Negative); Ketones Negative (Negative); Leukocyte Esterase Negative (Negative); Nitrite Negative (Negative); Urobilinogen 0.2 mg/dL (Up to 0.2); pH 5.5 (5-8)
--- NOTE | 2024-06-12 15:01 | PDOC.CMPRO ---
Date of service: 06/12/24 Time of Service: 15:02 Care Management Progress Note Progress Note Text Progress Note Text: CM was consulted to meet with Won Cantu to discuss his support at home. Per report, Pepe has a diagnosis is parkinsons disease; he is connected to the [facility], which is where he receives primary care. Pepe was lying in bed in the ED when CM met with him. His caregiver, Gene, was in the room visiting. Pepe stated that he does pretty well at home, and has caregivers, arranged through the [facility]. He stated that he has a [facility] casework [facility], but was not sure of her name. He reported that he has caregiver support from 7a-11a wednesday-wednesday, 12:30-5p MWF, and 2:30-5:30 , TH. He also stated he has support on the weekends. He stated that he ambulates with a FWW and a wheelchair. He stated that when he does not have caregiver support, he sits in his chair and watches TV. Per report, his daughter lives in [place], and would like him to relocate to be closer to her, but that he would need to transition to fdc care in [place]. LARRY discussed this with Pepe, who stated that he would be ok with relocating, but does not want to live in a facility. He prefers to remain home. He stated that he has not considered a terminal block assembler plan, if his care needs exceed the home care that he currently receives. LARRY contacted the [facility] and spoke to his correctional casework specialist, Idalia, who works out of the [facility]. She stated that he has caregivers through the [facility] (20 hrs), and also has support and some caregivers through the [facility]. She identified Yari as his [facility] correctional casework specialist. Idalia stated that Pepe is not service connected, despite claims of his exposure to agent orange, as this has not been validated. She stated that he needs to go through a new process to determine his level of service connection, which he has not engaged in during [facility] to [facility]. She stated that he can be set in his ways. CM sent a referral to palliative care to discuss his goals of care. ED provider put in a referral for new PT for a home safety evaluation. CM will continue to follow. Social Determinants of Health Screening Will the Patient Participate in the Screening?: Declined to provide
== END 2024-06-12 13:05 | disposition home or self-care (01) ==
PROVIDERS: Emergency Provider Physician Assistant; PCP Internal Medicine
DX: R41.82 Altered mental status, unspecified (principal); G20.A1 Parkinson's disease without dyskinesia, without mention of fluctuations; I44.4 Left anterior fascicular block; Z85.51 Personal history of malignant neoplasm of bladder; Z85.01 Personal history of malignant neoplasm of esophagus; Z87.891 Personal history of nicotine dependence
CPT/HCPCS: 36415; 80053; 82962; 93005; 99285; 70450; 71046; 81003; 83735; 84484; 85025; 93010; 99284

== ENCOUNTER 2024-06-22 08:28 | Emergency (ER) | payer OTHER, SELFPAY ==
[2024-06-22] VITALS (30 sets, daily range): BP systolic 118–177; BP diastolic 65–95; PULSE 87–112; RESP 15–29; TEMP 35.7; O2SAT 92–97
--- NOTE | 2024-06-22 08:58 | DI.CT_ITS ---
Exam(s) CT CHEST/ABD/PEL WO EXAM: CT CHEST/ABD/PEL WO CLINICAL HISTORY: right flank and thorax pain. TECHNIQUE: Imaging Protocol: Axial computed tomography images with coronal and sagittal reformatted images were created and reviewed CONTRAST MATERIAL: Intravenous: none Oral: None COMPARISON: CT CT CHEST/ABD/PEL W from 04/23/2024 FINDINGS: CHEST: LUNGS: There are mild increased markings in the posterior basal segments of both lower lobes, more so than previous, not associated with significant pleural effusions. There are no ominous pulmonary no dules. Scattered tiny calcified granulomas are noted in both lung eckert, best evident on the MIP im ages. MEDIASTINUM: No obvious hilar nor mediastinal adenopathy. Visualized thyroid unremarkable.Visualized thyroid appears unremarkable. CARDIAC: Heart size is normal. There is no pericardial effusion.Caliber of the thoracic aorta is wit hin normal limits. OSSEOUS: Significant degenerative changes noted in the right shoulder glenohumeral joint. No fractur es.. ABDOMEN: There is no ascites. No evidence of bowel obstruction, free air, nor abscess. There is a left ingui nal hernia again noted which contains part of a small part of the sigmoid including a sigmoid diverti culum. No obvious diverticulitis at this level and no transition point to suggest obstruction of the colon at this level. LIVER: There are no obvious focal hepatic lesions evident of this noninfused study. GALLBLADDER/BILIARY: No obvious gallbladder pathology. CBD is not dilated. PANCREAS: No evidence of obvious pancreatic mass nor dilatation of the pancreatic duct. SPLEEN: Spleen is not enlarged. No obvious intrasplenic lesions. Calcified granuloma are noted in t he spleen. ADRENALS: There are no significant adrenal masses. KIDNEYS: No calculi nor hydronephrosis. No obvious solid renal masses. No cysts evident. ABDOMINAL AORTA: Abdominal aorta is calcified but not enlarged. Iliac arteries are also calcified bu t not enlarged. LYMPH NODES: There is no retroperitoneal nor para-aortic adenopathy. ABDOMINAL WALL/GI: There is a fat only containing midline umbilical hernia. Bilateral fat containing inguinal hernias again noted. On the left side contains part of the sigmoid as described above. No evidence of bowel obstruction. PELVIS: LYMPH NODES: There is no intrapelvic nor inguinal adenopathy. GI: No evidence of appendicitis.There is a sigmoid diverticulosis. No obvious acute diverticulitis. URINARY BLADDER: No calculi nor obvious masses evident REPRODUCTIVE: Enlarged prostate gland which indents the urinary bladder. OSSEOUS: No fractures. No significant osseous lesions. IMPRESSION: 1. There are bilateral fat containing inguinal hernias. However on the left side part of the wall of the sigmoid is pulled into the upper left inguinal hernia sac, including 1 of the diverticuli at thi s level. There is no evidence of acute diverticulitis and there is no evidence of transition point-b owel obstruction at this level. 2. Extensive sigmoid diverticulosis without evidence of obvious acute diverticulitis. 3. Slightly increased markings in both lung bases posterior basal segments both lower lobes, this sj ng slightly more than was evident on 04/23/2024. There are no significant pleural effusions. Called by myself to ER provider 06/22/2024 at 10:40 a.m. RADIATION DOSE DELIVERED: 784.49mGy.cm Total DLP DATA REPOSITORY: All CT scans at this facility are submitted to the National Radiology Data Registry (NRDR) Dose Index Registry (DIR) with the [employer] (A[employer]). RADIATION OPTIMIZATION: All CT scans at this facility use at least one of these dose optimization te chniques: automated exposure control; mA and/or kV adjustment per patient size (includes targeted exa ms where dose is matched to clinical indication); or iterative reconstruction.
[2024-06-22 09:19] LABS: Abs Immature Grans 0.03 10^3/uL (0.0-0.06); Absolute Basophil Count 0.05 10^3/uL (0.0-0.2); Absolute Eosinophil Count 0.08 10^3/uL (0.0-0.7); Absolute Monocyte Count 0.44 10^3/uL (0.1-0.8); Absolute Neutrophil Count 8.08 10^3/uL (1.2-6.7); Basophils % 0.5 %; Eosinophils % 0.8 %; HGB 13.8 g/dL (13.5-17.5); Immature Grans % 0.3 %; Lymphocytes % 8.4 %; MCH 29.9 pg (27.0-33.0); MCHC 32.1 % (32.0-36.0); MCV 93 fL (80-95); MPV 8.7 fL (8.0-11.0); Monocytes % 4.6 %; Neutrophils % 85.4 %; Platelet Count 236 10^3/uL (130-400); RBC 4.61 10^6/uL (4.36-5.78); RDW 14.6 % (11.8-14.1); RDW-SD 49.7 fL; WBC 9.48 10^3/uL (4.4-10.8)
[2024-06-22 09:33] LABS: ALT 9 U/L (16-63); AST 28 U/L (15-37); Albumin 3.4 g/dL (3.4-5.0); Alkaline Phosphatase 114 U/L (46-116); Anion Gap 6.4 mmol/L (3-11); BUN 20 mg/dL (7-18); Bilirubin, Total 0.6 mg/dL (0.2-1.0); CO2 30.6 mmol/L (21.0-32.0); CREATININE 1.1 mg/dL (0.70-1.30); Calcium 9.6 mg/dL (8.5-10.1); Chloride 104 mmol/L (98-107); Estimated GFR 67.86 (mL/min/1.73m2); Glucose 114 mg/dL (74-106); Lipase 24 U/L (<78); Potassium 4.6 mmol/L (3.5-5.1); Sodium 141 mmol/L (136-145); Total Protein 8.3 g/dL (6.4-8.2)
[2024-06-22 09:49] LABS: Bilirubin Negative (Negative); Blood Negative (Negative); Clarity Clear (Clear); Glucose Negative (Negative); Ketones Negative (Negative); Leukocyte Esterase Negative (Negative); Nitrite Negative (Negative); Urobilinogen 0.2 mg/dL (Up to 0.2)
[2024-06-22 09:57] LABS: Bacteria Negative HPF (Negative); C & S Indicated? No; Casts 0-2 Hyaline LPF (Negative); Crystals Negative HPF (Negative); Epithelial Cells Rare HPF (Negative); Mucus Negative (Negative); RBC Negative HPF (0-2); WBC 0-2 HPF (0-5)
[2024-06-22] MEDS: Lidocaine 5% Patch 2 PATCH TP (11:20)
[2024-06-22] MEDS: Acetaminophen 325 MG TAB (11:20)
--- NOTE | 2024-06-22 13:00 | W.ED.GENAD ---
Discharge Plan Disposition Patient Disposition: Home Condition: Stable Discharge Details Clinical Impression: Back pain Primary Care Provider: Jovany Donaldson ED Provider: Maricel Kearns Home Meds and New Rx's Prescriptions: New cyclobenzaprine 5 mg tablet 5 mg PO HS Qty: 8 0RF lidocaine [Lidoderm] 5 % adhesive patch,medicated 1 patch topical DAILY Qty: 15 0RF Rx Instructions: leave on most painful area for up to 12 hrs baclofen 10 mg tablet 5 mg PO QHS Qty: 7 0RF Continued carbidopa-levodopa 25-100 mg tablet 1 tab PO TID duloxetine 60 mg capsule,delayed release(DR/EC) 60 mg PO DAILY omeprazole 20 mg capsule,delayed release(DR/EC) 20 mg PO .qod potassium chloride 10 mEq capsule, extended release 10 meq PO DAILY Patient Comments: ran out of rx simvastatin 80 mg tablet 80 mg PO QHS tamsulosin 0.4 mg capsule 0.4 mg PO DAILY magnesium 250 mg tablet 250 mg PO DAILY Qty: 10 0RF psyllium seed (sugar) Powder 1 tsp PO DAILY Patient Comments: [facility] with [facility] sodium 1 % gel 4.5 inch topical QID PRN Rx Instructions: apply to single elbow, wrist or hand; for hand includes palm/fingers/back of hand Discharge Instructions Instructions: Low Back Pain ED Additional Instructions: You have inguinal hernias that you may follow-up with their doctor regarding The remainder of your CT does not show evidence of significant acute abnormality, you may apply topical Lidoderm patches as needed for discomfort, if your insurance does not cover these you may buy [id number] Lidoderm patches which will work quite nicely 12 hours on 12 hours off Use walker with ambulation repeat assessment in 3 days with persistent discomfort Suspect your pain is related to musculoskeletal etiology and taking Tylenol every 4 hours so as not to exceed 3 g of Tylenol daily to help with her pain Discharge Data Discharge Date/Time-TO BE ENTERED AT DEPARTURE: 06/22/24 11:57 HPI General Date/Time Provider Initiated Documentation: 06/22/24 08:32. HPI Narrative: The patient, with Parkinson's disease and hyperlipidemia, reports right flank pain starting 1 day prior. Pain began upon rising from a chair and persists, worsened by coughing, laughing, or movement. No hematuria, dysuria, fever, chills, or similar episodes. Chronic cough without recent changes, no dyspnea, hemoptysis, or calf pain/swelling. Related Data Home Medications ?Medication ?Instructions ?Recorded ?Confirmed carbidopa 25 mg-levodopa 100 mg 1 tab PO TID 12/28/23 06/22/24 tablet duloxetine 60 mg capsule,delayed 60 mg PO DAILY 12/28/23 06/22/24 release omeprazole 20 mg capsule,delayed 20 mg PO .qod 12/28/23 06/22/24 release potassium chloride 10 mEq 10 meq PO DAILY 12/28/23 06/22/24 capsule,extended release simvastatin 80 mg tablet 80 mg PO QHS 12/28/23 06/22/24 tamsulosin 0.4 mg capsule 0.4 mg PO DAILY 12/28/23 06/22/24 magnesium 250 mg tablet 250 mg PO DAILY #10 tabs 04/23/24 06/22/24 baclofen 10 mg tablet 5 mg (1/2 x 10 mg) PO QHS #7 tabs 06/22/24 cyclobenzaprine 5 mg tablet 5 mg PO HS #8 tabs 06/22/24 diclofenac sodium 1 % topical gel 4.5 inch topical QID PRN 06/22/24 06/22/24 lidocaine 5 % topical patch 1 patch topical DAILY #15 ea 06/22/24 (Lidoderm) psyllium seed (sugar) oral powder 1 tsp PO DAILY 06/22/24 06/22/24 Previous Rx's ?Medication ?Instructions ?Recorded magnesium 250 mg tablet 250 mg PO DAILY #10 tabs 04/23/24 baclofen 10 mg tablet 5 mg (1/2 x 10 mg) PO QHS #7 tabs 06/22/24 cyclobenzaprine 5 mg tablet 5 mg PO HS #8 tabs 06/22/24 lidocaine 5 % topical patch 1 patch topical DAILY #15 ea 06/22/24 (Lidoderm) Allergies Allergy/AdvReac Type Severity Reaction Status Date / Time No Known Allergies Allergy Unverified 06/22/24 08:44 General Stated Complaint: FlankPain DIEGO: 3 Exam Narrative Exam Narrative: General Appearance: Alert and oriented, no acute distress. Vital signs: Within normal limits. HEENT: Within normal limits. Respiratory: Tenderness in right upper thorax. Cardiovascular: Cardiac rate rhythm regular Gastrointestinal: No abdominal tenderness no abdominal bruit or pulsatile mass Genitourinary: Lymphatic: Back, Musculoskeletal: Tenderness in right flank. Extremities: No peripheral edema distal pulses intact Skin: Warm and dry, no rash. Neurological: Normal. Psychiatric: Other observations: Course Vital Signs Vital signs: Vital Signs Temperature 35.7 C L 06/22/24 08:33 Pulse 112 H 06/22/24 08:33 Respiratory Rate 16 06/22/24 08:33 Blood Pressure 155/76 H 06/22/24 08:33 Pulse Oximetry 96 06/22/24 08:33 Temperature 35.7 C L 06/22/24 08:53 Temperature Source Tympanic 06/22/24 08:53 Pulse 98 H 06/22/24 11:34 Pulse 104 H 06/22/24 11:10 Respiratory Rate 20 06/22/24 11:34 Respiratory Depth Normal 06/22/24 10:33 Blood Pressure 149/79 H 06/22/24 11:34 Blood Pressure Mean 88 06/22/24 11:01 Blood Pressure Position Sitting 06/22/24 08:53 Pulse Oximetry 95 06/22/24 11:34 Oxygen Delivery Method Room Air 06/22/24 10:33 Oxygen Flow Rate 0 06/22/24 10:33 Pain Level 7 06/22/24 08:53 Lab/Test Results Lab/Test Results: Laboratory Tests Range/Units 06/22/24 06/22/24 09:12 09:32 WBC (4.4-10.8) 10^3/uL 9.48 RBC (4.36-5.78) 10^6/uL 4.61 Hgb (13.5-17.5) g/dL 13.8 Hct (40.0-50.0) % 43.0 MCV (80-95) fL 93 MCH (27.0-33.0) pg 29.9 MCHC (32.0-36.0) % 32.1 RDW (11.8-14.1) % 14.6 H Plt Count (130-400) 10^3/uL 236 MPV (8.0-11.0) fL 8.7 Immature Gran % % 0.3 Neutrophils % % 85.4 Lymphocytes % % 8.4 Monocytes % % 4.6 Eosinophils % % 0.8 Basophils % % 0.5 Nucleated RBC % (0.0-0.3) % 0.0 Absolute Neutrophils (1.2-6.7) 10^3/uL 8.08 H Absolute Lymphocytes (1.2-3.4) 10^3/uL 0.80 L Absolute Monocytes (0.1-0.8) 10^3/uL 0.44 Absolute Eosinophils (0.0-0.7) 10^3/uL 0.08 Absolute Basophils (0.0-0.2) 10^3/uL 0.05 Sodium (136-145) mmol/L 141 Potassium (3.5-5.1) mmol/L 4.6 Chloride (98-107) mmol/L 104 Carbon Dioxide (21.0-32.0) mmol/L 30.6 Anion Gap (3-11) mmol/L 6.4 BUN (7-18) mg/dL 20 H Creatinine (0.70-1.30) mg/dL 1.1 Est GFR (CKD-EPI 2020) (mL/min/1.73m2) 67.86 Glucose (74-106) mg/dL 114 H Calcium (8.5-10.1) mg/dL 9.6 Total Bilirubin (0.2-1.0) mg/dL 0.6 AST (15-37) U/L 28 ALT (16-63) U/L 9 L Alkaline Phosphatase (46-116) U/L 114 Total Protein (6.4-8.2) g/dL 8.3 H Albumin (3.4-5.0) g/dL 3.4 Lipase (<78) U/L 24 Urine Color (Yellow) Yellow Urine Clarity (Clear) Clear Urine pH (5-8) 7.0 Ur Specific [place] (1.005-1.025) 1.020 Urine Protein (Neg-Trace) mg/dL 30 H Urine Ketones (Negative) mg/dL Negative Urine Blood (Negative) Negative Urine Nitrite (Negative) Negative Urine Bilirubin (Negative) Negative Urine Urobilinogen (Up to 0.2) mg/dL 0.2 Ur Leukocyte Esterase (Negative) Negative Urine RBC (0-2) HPF Negative Urine WBC (0-5) HPF 0-2 Ur Epithelial Cells (Negative) HPF Rare Urine Crystals (Negative) HPF Negative Urine Bacteria (Negative) HPF Negative Urine Casts (Negative) LPF 0-2 Hyaline Urine Mucus (Negative) Negative Ur Culture Indicated? No Urine Glucose (Negative) mg/dL Negative Medical Decision Making CBC, CMP, and urinalysis normal. CT chest, abdomen, and pelvis normal. Bilateral inguinal hernias, non-tender and reducible. Initial Assessment: Patient presents with right flank pain that started 1 day prior to arrival, worsened with coughing, laughing, or movement. No hematuria, dysuria, fever, chills, shortness of breath, hemoptysis, calf pain, or swelling. History of Parkinson's disease and hyperlipidemia. Chronic cough without new changes. ED Course: - CT chest, abdomen, and pelvis ordered; no evidence of acute abnormality. - Bilateral inguinal hernias noted; non-tender and easily reducible. - Diagnostic lab work reviewed: CBC, CMP, urinalysis; no acute abnormality. - Patient reassessed; in no acute distress. - Prescribed Flexeril 5 mg at night PRN for discomfort. - Discussed risks associated with medication due to Parkinson's disease. - Patient advised to follow up with PCP in 2-3 days for reassessment. - Return precautions reviewed; patient expressed understanding. Final Assessment: Patient's right flank pain managed from a musculoskeletal standpoint. CT imaging and lab work normal. Bilateral inguinal hernias identified but not causing acute issues. Flexeril prescribed for pain management with consideration of Parkinson's disease. Clinical Impression: - Right flank pain - Bilateral inguinal hernias Disposition: - Discharge - Follow-Up: Patient to see primary care physician in 2-3 days for reassessment. MDM Components Evaluation: - Number of Differential Diagnoses or Management Options: Musculoskeletal pain, inguinal hernias - Amount and Complexity of Data Reviewed: CT chest, abdomen, and pelvis; CBC, CMP, urinalysis - Risk of Complication and Morbidity or Mortality: Low risk due to normal imaging and lab results; consideration of Parkinson's disease in medication management. Quality:[facility] Health Related Social Needs: No Data to Display PFSH All Active Problems (Updated 06/22/24 @ 10:53 by FRANCISCO Ferraro) Back pain (Acute) Parkinson disease (Chronic) Altered mental status (Acute) Trochanteric bursitis, right hip (Acute) Osteoarthritis of left knee (Acute) Social History Smoking/Tobacco Use Status: Former Tobacco Use Smoking risk assessment performed?: Yes Alcohol Intake: never Substance use type: does not use Housing: house Do you feel safe at home: Yes Do you feel safe in your relationship?: Yes
--- NOTE | 2024-06-22 13:02 | NUR.NOTE ---
Nursing Note: The patients caregiver called stating that the flexeril is not covered by his insurance. i spoke with the pharmacy and they said that we needed to do a prior authorization. I spoke with Maricel Kearns, who saw him and she sent in a new prescription for baclofen in hopes that the insurance would cover that. I call the patient back and filled them in on this and also notified them that cyclobenzaprine is a very cheap medication if they decided that they were able to just pay [facility] for it instead of dealing with the insurance company.
== END 2024-06-22 11:57 | disposition home or self-care (01) ==
PROVIDERS: Emergency Provider Physician Assistant; PCP Internal Medicine
DX: R10.9 Unspecified abdominal pain (principal); M54.50 Low back pain, unspecified; G20.A1 Parkinson's disease without dyskinesia, without mention of fluctuations; E78.5 Hyperlipidemia, unspecified
CPT/HCPCS: 36415; 71250; 80053; 83690; 99284; 74176; 81003; 81015; 85025

== ENCOUNTER → 2025-02-13 00:38 | Outpatient (CLI) | payer OTHER, SELFPAY ==
--- NOTE | 2025-02-13 | DI.RAD_ITS ---
Exam(s) XR CHEST 2V PA LATERAL EXAM: XR CHEST 2V PA LATERAL CLINICAL HISTORY: [id number], Z13.383, ENCOUNTER FOR SCREENING FOR RESPIRATORY DISORDER TECHNIQUE: 2D digital imaging was performed. Two views. COMPARISON: CR XR CHEST 2V PA LATERAL from 06/12/[address] CHEST/ABD/PEL WO from 06/22/2024 FINDINGS: HEART: Normal size. Aorta: Not dilated. Calcification at arch. PULMONARY VASCULATURE: Normal. MEDIASTINUM: Unremarkable. LUNGS: Clear. PLEURAL SPACE: No pleural effusion or pneumothorax. BONE:Flowing osteophytes in the spine. SOFT TISSUES: Unremarkable. IMPRESSION: No acute abnormality. DATA REPOSITORY: RADIATION DOSE DELIVERED:
== END ==
PROVIDERS: PCP Internal Medicine; Visit Provider Nurse Practitioner
DX: Z13.83 Encounter for screening for respiratory disorder NEC (principal)
CPT/HCPCS: 71046